=== PATIENT | female | born 1990 | race Caucasian/White ===

== ENCOUNTER 2017-08-06 18:08 | Emergency (ER) | payer OTHER ==
[~2017-08-06] VITALS: Ht 162.6 cm; Wt 50.0 kg
[~2017-08-06 18:08] MED LIST: ADDE30XR PO; CLON1 PO; LAMO100 PO; LEXA10TA PO; SERO100T PO
[2017-08-06 18:11] VITALS: BP 138/94; PULSE 94; RESP 16; TEMP 98; O2SAT 100
[2017-08-06] MEDS ORDERED: LAMO100 PO (18:39)
[2017-08-06] MEDS ORDERED: SERO100T PO (18:39)
[2017-08-06] MEDS ORDERED: LEXA10TA PO (18:39)
[2017-08-06] MEDS ORDERED: METHADONE PO (18:39)
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
[2017-08-06] MEDS ORDERED: SODIUM CHLOR 0.9% 1000 ML INJ 1,000 ML IV ONE (20:00)
[2017-08-06] MEDS ORDERED: BACITRACIN TOP OINT 15 GM TUBE TOPICAL ONE (20:00)
[2017-08-06 20:15] VITALS: BP_SYST 121; BP_SYST 123; BP_SYST 124; BP_DIAS 75; BP_DIAS 79; BP_DIAS 83; RESP 18
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
== END 2017-08-06 22:28 | disposition home or self-care (01) ==
LOC: NEPC 18:08
DX: S00.83XA Contusion of other part of head, initial encounter (principal); F90.9 Attention-deficit hyperactivity disorder, unspecified type; F31.9 Bipolar disorder, unspecified; F41.9 Anxiety disorder, unspecified; F17.210 Nicotine dependence, cigarettes, uncomplicated; V49.9XXA Car occupant (driver) (passenger) injured in unspecified traffic accident, initial encounter; Z79.899 Other long term (current) drug therapy; Z86.19 Personal history of other infectious and parasitic diseases
CPT/HCPCS: 70450; 84703; 99285; J7030